=== PATIENT | male | born 1930 | race Caucasian/White ===

== ENCOUNTER 2017-02-03 09:38 | Outpatient (CLI) | payer MEDICARE ==
[2017-02-03 20:29] LABS: ALBUMIN/GLOBULIN RATIO 1.7 (1.0-2.2); BILIRUBIN,TOTAL 1.1 mg/dL (0.2-1.0); CALCIUM 10.1 mg/dL (8.5-10.3); CREATININE 1.2 mg/dL (0.6-1.2); POTASSIUM 4.3 mmol/L (3.5-5.0); TOTAL PROTEIN 7.1 g/dL (6.7-8.2)
== END 2017-02-03 09:39 | disposition home or self-care (01) ==
LOC: LAB.WCP 09:38
PROVIDERS: ATTEND Family Medicine
DX: I11.9 Hypertensive heart disease without heart failure (principal); I10 Essential (primary) hypertension; N28.9 Disorder of kidney and ureter, unspecified
CPT/HCPCS: 36415; 80053

== ENCOUNTER 2018-07-21 11:21 | Outpatient (CLI) | payer MEDICARE ==
[2018-07-21 11:49] LABS: BASOPHILS # (AUTO) 0.1 10^3/uL (0.0-0.1); BASOPHILS % (AUTO) 1.2 %; EOSINOPHILS # (AUTO) 0.4 10^3/uL (0.0-0.7); EOSINOPHILS % (AUTO) 5.3 %; HGB - HEMOGLOBIN 17.2 g/dL (14.0-18.0); LYMPHOCYTES # (AUTO) 1.1 10^3/uL (1.5-3.5); LYMPHOCYTES % (AUTO) 12.7 %; MEAN CORPUSCULAR HEMOGLOBIN 31.3 pg (27.0-31.0); MEAN CORPUSCULAR HGB CONC 34.4 g/dL (32.0-36.0); MEAN PLATELET VOLUME 7.5 fL (7.4-11.4); MONOCYTES # (AUTO) 0.7 10^3/uL (0.0-1.0); MONOCYTES % (AUTO) 8.6 %; NEUTROPHILS # (AUTO) 6.2 10^3/uL (1.5-6.6); NEUTROPHILS % (AUTO) 72.2 %; PLT - PLATELET COUNT 290 10^3/uL (130-450); RED BLOOD COUNT 5.51 10^6/uL (4.70-6.10); RED CELL DISTRIBUTION WIDTH 14.5 % (12.0-15.0); WHITE BLOOD COUNT 8.5 x10^3/uL (4.8-10.8)
[2018-07-21 12:08] LABS: ALBUMIN 4.6 g/dL (3.2-5.5); ALBUMIN/GLOBULIN RATIO 1.6 (1.0-2.2); ALKALINE PHOSPHATASE 94 IU/L (42-121); ALT ALANINE AMINOTRANSFERASE 19 IU/L (10-60); AST ASPARTATE AMINOTRANSFERASE 23 IU/L (10-42); BILIRUBIN,TOTAL 1.5 mg/dL (0.2-1.0); BUN - BLOOD UREA NITROGEN 20 mg/dL (6-20); CARBON DIOXIDE - CO2 27 mmol/L (21-32); CHLORIDE 104 mmol/L (101-111); CHOLESTEROL 159 mg/dL; CREATININE 1.2 mg/dL (0.6-1.2); GFR - MDRD 58 (>89); GLUCOSE 105 mg/dL (70-100); HDL CHOLESTEROL 40 mg/dL; LDL CHOLESTEROL,CALCULATED 99 mg/dL; LDL/HDL RATIO 2.5 (<3.6); SODIUM 139 mmol/L (135-145); TOTAL PROTEIN 7.5 g/dL (6.7-8.2); VLDL CHOLESTEROL 20 mg/dL
== END 2018-07-21 11:22 | disposition home or self-care (01) ==
LOC: LAB 11:21
PROVIDERS: ATTEND Family Medicine
DX: I10 Essential (primary) hypertension (principal); Z13.220 Encounter for screening for lipoid disorders; R53.83 Other fatigue
CPT/HCPCS: 36415; 80053; 80061; 83721; 84443; 85025

== ENCOUNTER 2019-02-23 08:00 | Outpatient (CLI) | payer MEDICARE ==
[2019-02-23 18:56] LABS: BASOPHILS # (AUTO) 0.1 10^3/uL (0.0-0.1); BASOPHILS % (AUTO) 0.6 %; EOSINOPHILS # (AUTO) 0.3 10^3/uL (0.0-0.7); HGB - HEMOGLOBIN 16.7 g/dL (14.0-18.0); LYMPHOCYTES % (AUTO) 12.2 %; MEAN CORPUSCULAR HEMOGLOBIN 31.8 pg (27.0-31.0); MEAN CORPUSCULAR HGB CONC 33.4 g/dL (32.0-36.0); MEAN CORPUSCULAR VOLUME 95.2 fL (80.0-94.0); MEAN PLATELET VOLUME 10.1 fL (7.4-11.4); MONOCYTES # (AUTO) 0.7 10^3/uL (0.0-1.0); MONOCYTES % (AUTO) 8.8 %; NEUTROPHILS # (AUTO) 6.1 10^3/uL (1.5-6.6); PLT - PLATELET COUNT 319 10^3/uL (130-450); RED BLOOD COUNT 5.25 10^6/uL (4.70-6.10); RED CELL DISTRIBUTION WIDTH 14.3 % (12.0-15.0); WHITE BLOOD COUNT 8.3 x10^3/uL (4.8-10.8)
[2019-02-23 19:13] LABS: ALBUMIN 4.4 g/dL (3.2-5.5); ALBUMIN/GLOBULIN RATIO 1.5 (1.0-2.2); ALKALINE PHOSPHATASE 74 IU/L (42-121); ALT ALANINE AMINOTRANSFERASE 18 IU/L (10-60); AST ASPARTATE AMINOTRANSFERASE 24 IU/L (10-42); BILIRUBIN,TOTAL 1.3 mg/dL (0.2-1.0); BUN - BLOOD UREA NITROGEN 23 mg/dL (6-20); CALCIUM 10.3 mg/dL (8.5-10.3); CARBON DIOXIDE - CO2 26 mmol/L (21-32); CHLORIDE 106 mmol/L (101-111); CHOL/HDL RATIO 4.2 (<5.0); CHOLESTEROL 158 mg/dL; CREATININE 1.2 mg/dL (0.6-1.2); GFR - MDRD 57 (>89); GLUCOSE 93 mg/dL (70-100); HDL CHOLESTEROL 38 mg/dL; LDL CHOLESTEROL,CALCULATED 99 mg/dL; LDL/HDL RATIO 2.6 (<3.6); SODIUM 142 mmol/L (135-145); TOTAL PROTEIN 7.4 g/dL (6.7-8.2); VLDL CHOLESTEROL 21 mg/dL
== END 2019-02-23 23:59 | disposition home or self-care (01) ==
LOC: LAB.WCP 08:00
PROVIDERS: ATTEND Family Medicine
DX: I10 Essential (primary) hypertension (principal); R53.83 Other fatigue; Z13.220 Encounter for screening for lipoid disorders
CPT/HCPCS: 36415; 80053; 80061; 83721; 84443; 85025

== ENCOUNTER 2019-09-08 14:31 | Outpatient (CLI) | payer MEDICARE ==
[2019-09-08 18:36] LABS: BASOPHILS # (AUTO) 0.1 10^3/uL (0.0-0.1); BASOPHILS % (AUTO) 0.6 %; EOSINOPHILS # (AUTO) 0.4 10^3/uL (0.0-0.7); EOSINOPHILS % (AUTO) 4.8 %; HGB - HEMOGLOBIN 16.1 g/dL (14.0-18.0); LYMPHOCYTES # (AUTO) 1.2 10^3/uL (1.5-3.5); LYMPHOCYTES % (AUTO) 15.4 %; MEAN CORPUSCULAR HEMOGLOBIN 30.7 pg (27.0-31.0); MEAN CORPUSCULAR VOLUME 93.1 fL (80.0-94.0); MONOCYTES # (AUTO) 0.8 10^3/uL (0.0-1.0); MONOCYTES % (AUTO) 10.9 %; NEUTROPHILS # (AUTO) 5.2 10^3/uL (1.5-6.6); NEUTROPHILS % (AUTO) 67.8 %; PLT - PLATELET COUNT 324 10^3/uL (130-450); RED BLOOD COUNT 5.24 10^6/uL (4.70-6.10); RED CELL DISTRIBUTION WIDTH 14.4 % (12.0-15.0); WHITE BLOOD COUNT 7.7 x10^3/uL (4.8-10.8)
[2019-09-08 18:58] LABS: BUN - BLOOD UREA NITROGEN 24 mg/dL (6-20); CARBON DIOXIDE - CO2 26 mmol/L (21-32); CHLORIDE 104 mmol/L (101-111); CREATININE 1.3 mg/dL (0.6-1.2); GFR - MDRD 52 (>89); GLUCOSE 98 mg/dL (70-100); SODIUM 139 mmol/L (135-145); URIC ACID 8.2 mg/dL (2.6-7.2)
[2019-09-08 19:02] LABS: CRP - C-REACTIVE PROTEIN < 1.0 mg/dL (0-1.0)
== END 2019-09-08 23:59 | disposition home or self-care (01) ==
LOC: LAB.WCP 14:31
PROVIDERS: ATTEND Family Medicine
DX: M10.00 Idiopathic gout, unspecified site (principal)
CPT/HCPCS: 36415; 80048; 84550; 85025; 85651; 86140

== ENCOUNTER 2019-10-10 05:36 | Outpatient (CLI) | payer MEDICARE | END 2019-10-10 05:37 | disposition home or self-care (01) | LOC: EMS 05:36 | PROVIDERS: ATTEND Surgery | DX: Z53.9 Procedure and treatment not carried out, unspecified reason (principal) ==

== ENCOUNTER 2020-05-06 16:30 | Outpatient (CLI) | payer MEDICARE ==
[2020-05-06 20:05] LABS: BILIRUBIN,URINE NEGATIVE (NEGATIVE); GLUCOSE, URINE (UA) NEGATIVE (NEGATIVE); KETONES,URINE (UA) NEGATIVE (NEGATIVE); LEUKOCYTE ESTERASE, URINE NEGATIVE (NEGATIVE); NITRITE,URINE NEGATIVE (NEGATIVE); OCCULT BLOOD,URINE NEGATIVE (NEGATIVE); PROTEIN,URINE NEGATIVE (NEGATIVE); UROBILINOGEN,URINE 0.2 (NORMAL) E.U./dL (NORMAL)
[2020-05-06 20:14] LABS: CLARITY,URINE CLEAR (CLEAR); RBC,URINE None Seen /HPF (0-5)
[2020-05-06 20:15] LABS: BACTERIA,URINE None Seen /HPF (None Seen); SQUAMOUS EPITHELIAL CELL,UR RARE Squamous (<= Few)
== END 2020-05-06 23:59 | disposition home or self-care (01) ==
LOC: LAB.R 16:30
PROVIDERS: ATTEND Physician Assistant Medical
DX: R35.0 Frequency of micturition (principal); R41.0 Disorientation, unspecified
CPT/HCPCS: 81001; 87086

== ENCOUNTER 2020-06-17 15:25 | Outpatient (CLI) | payer MEDICARE ==
--- NOTE | 2020-06-17 18:20 | Ultrasound Report ---
PROCEDURE: Duplex Lwr Ext Arterial LT INDICATIONS: PERIPHERAL ARTERY DISEASE TECHNIQUE: Color and pulse Doppler interrogation was performed of the right lower extremity arterial system, wit h image documentation. COMPARISON: None FINDINGS: Common femoral artery: 101 cm/sec, with triphasic flow. Deep femoral artery: 71 cm/sec, with triphasic flow. Proximal superficial femoral artery: 103 cm/sec, with triphasic flow. Mid superficial femoral artery: 116 cm/sec, with triphasic flow. Distal superficial femoral artery: 55 cm/sec, with biphasic flow. Popliteal artery: 68 cm/sec, with triphasic flow. Posterior tibial artery: 109 cm/sec, with triphasic flow. Anterior tibial artery/dorsalis pedis: 69/40 cm/sec, with triphasic/triphasic flow. Nova-scale imaging description: Mild calcific and soft plaque, but no significant stenosis. IMPRESSION: No sign of arterial insufficiency to the right lower extremity arterial vasculature. Reviewed by: Mikael Ceballos MD on 06/17/2020 6:19 PM PST Approved by: Mikael Ceballos MD on 06/17/2020 6:19 PM PST Station ID: [id number]
== END 2020-06-17 15:26 | disposition home or self-care (01) ==
LOC: DI 15:25
PROVIDERS: ATTEND Family Medicine
DX: I73.9 Peripheral vascular disease, unspecified (principal)

== ENCOUNTER 2020-12-18 16:06 | Outpatient (CLI) | payer MEDICARE ==
[2020-12-18 17:46] LABS: BASOPHILS # (AUTO) 0.1 10^3/uL (0.0-0.1); BASOPHILS % (AUTO) 0.7 %; EOSINOPHILS # (AUTO) 0.4 10^3/uL (0.0-0.7); EOSINOPHILS % (AUTO) 4.2 %; HCT - HEMATOCRIT 46.9 % (42.0-52.0); HGB - HEMOGLOBIN 15.5 g/dL (14.0-18.0); LYMPHOCYTES # (AUTO) 1.2 10^3/uL (1.5-3.5); LYMPHOCYTES % (AUTO) 12.3 %; MEAN CORPUSCULAR HEMOGLOBIN 32.1 pg (27.0-31.0); MEAN CORPUSCULAR VOLUME 97.1 fL (80.0-94.0); MEAN PLATELET VOLUME 10.5 fL (7.4-11.4); MONOCYTES # (AUTO) 0.9 10^3/uL (0.0-1.0); MONOCYTES % (AUTO) 9.4 %; NEUTROPHILS # (AUTO) 7.1 10^3/uL (1.5-6.6); PLT - PLATELET COUNT 314 10^3/uL (130-450); RED BLOOD COUNT 4.83 10^6/uL (4.70-6.10); RED CELL DISTRIBUTION WIDTH 14.3 % (12.0-15.0); WHITE BLOOD COUNT 9.7 x10^3/uL (4.8-10.8)
[2020-12-18 18:03] LABS: ALBUMIN 4.1 g/dL (3.2-5.5); ALBUMIN/GLOBULIN RATIO 1.4 (1.0-2.2); ALKALINE PHOSPHATASE 104 IU/L (42-121); ALT ALANINE AMINOTRANSFERASE 19 IU/L (10-60); AST ASPARTATE AMINOTRANSFERASE 25 IU/L (10-42); BILIRUBIN,TOTAL 0.8 mg/dL (0.2-1.0); BUN - BLOOD UREA NITROGEN 30 mg/dL (6-20); CALCIUM 9.6 mg/dL (8.5-10.3); CARBON DIOXIDE - CO2 29 mmol/L (21-32); CHLORIDE 106 mmol/L (101-111); CHOL/HDL RATIO 3.8 (<5.0); CHOLESTEROL 142 mg/dL; CREATININE 1.2 mg/dL (0.6-1.2); GFR - MDRD 57 (>89); GLUCOSE 82 mg/dL (70-100); HDL CHOLESTEROL 37 mg/dL; LDL CHOLESTEROL,CALCULATED 77 mg/dL; LDL/HDL RATIO 2.1 (<3.6); POTASSIUM 4.1 mmol/L (3.5-5.0); SODIUM 142 mmol/L (135-145); TOTAL PROTEIN 7.1 g/dL (6.7-8.2); TRIGLYCERIDES 139 mg/dL; VLDL CHOLESTEROL 28 mg/dL
== END 2020-12-18 16:07 | disposition home or self-care (01) ==
LOC: LAB.N 16:06
PROVIDERS: ATTEND Family Medicine
DX: I10 Essential (primary) hypertension (principal)
CPT/HCPCS: 36415; 80053; 80061; 83721; 85025

== ENCOUNTER 2021-02-03 05:22 | Outpatient (CLI) | payer MEDICARE | END 2021-02-03 05:23 | disposition critical access hospital (66) | LOC: EMS 05:22 | DX: S01.01XA Laceration without foreign body of scalp, initial encounter (principal); W01.0XXA Fall on same level from slipping, tripping and stumbling without subsequent striking against object, initial encounter; Y93.89 Activity, other specified; Y92.190 Kitchen in other specified residential institution as the place of occurrence of the external cause | CPT/HCPCS: A0425; A0429 ==

== ENCOUNTER 2021-02-03 05:37 | Emergency (ER) | payer MEDICARE ==
--- NOTE | 2021-02-03 06:09 | ED Physician Documentation ---
PD HPI HEAD INJURY - Stated complaint Stated Complaint: GLF, HEAD INJURY - Chief complaint Chief Complaint: Laceration - History obtained from History obtained from: Patient, EMS - History of Present Illness Mechanism of head injury: Fell Where head injury occurred: Home Timing - onset: Today Location of injury: Back Quality of pain: Pain Associated symptoms: Other. No: LOC Symptoms improve with: Rest Symptoms worsen with: Palpation Contributing factors: No: Anticoagulated Similar symptoms before: Has not had sx before Recently seen: Not recently seen - Additional information Additional information: 89-year-old male resident of [place] with a history of advanced dementia was found at the nurses station to have a laceration to the back of his head. He was unable to describe how he fell and the fall was unwitnessed. He is not able as a historian to provide any detail. Review of Systems Unable to obtain: Dementia PD PAST MEDICAL HISTORY - Past Medical History Cardiovascular: Congestive heart failure, Hypertension Neuro: Dementia : Benign prostate hypertrophy Musculoskeletal: Osteoarthritis, Gout, Other (Dupuytren's contracture right hand) Derm: Other - Past Surgical History HEENT: Other - Present Medications Home Medications: Ambulatory Orders Medication Instructions Recorded Confirmed Amlodipine Besylate 10 mg PO DAILY 08/16/19 02/03/21 Furosemide [Lasix] 60 mg PO DAILY 08/16/19 02/03/21 Lisinopril [Zestril] 40 mg PO DAILY 08/16/19 02/03/21 Potassium Chloride 20 meq PO DAILY 08/16/19 02/03/21 allopurinoL [Zyloprim] 1 tab PO DAILY 07/09/20 02/03/21 Acetaminophen [Acetaminophen Extra 1 tab PO TID PRN 02/03/21 02/03/21 Strength] [place]-3/Dha/Epa/Fish Oil [Fish Oil 1 cap PO DAILY 02/03/21 02/03/21 1,000 mg Softgel] - Allergies Allergies/Adverse Reactions: Allergies Allergy/AdvReac Type Severity Reaction Status Date / Time Sulfa (Sulfonamide Allergy Unknown Verified 02/03/21 05:56 Antibiotics) - Social History Smoking Status: Never smoker PD ED PE NORMAL - Vitals Vital signs reviewed: Yes (Hypertensive mild) - General General: No acute distress, Well developed/nourished - HEENT HEENT: PERRL, EOMI, Other (There is a 4 cm L-shaped laceration to the occiput. There is no crepitance to the underlying tissues.) - Neck Neck: Supple, no meningeal sign, No bony TTP - Cardiac Cardiac: RRR, No murmur - Respiratory Respiratory: No respiratory distress, Clear bilaterally - Abdomen Abdomen: Normal bowel sounds, Soft, Non tender, Non distended, No organomegaly - Back Back: No CVA TTP, No spinal TTP - Derm Derm: Normal color, Warm and dry, No rash - Extremities Extremities: Other (Both feet are swollen this appears chronic.) - Neuro Neuro: top lifter 2-12 intact, No motor deficit, No sensory deficit, Normal speech Eye Opening: Spontaneous Motor: Obeys Commands Verbal: Confused GCS Score: 14 - Psych Psych: Normal mood, Normal affect Results - Vitals Vitals: Vital Signs - 24 hr 02/03/21 05:40 Temperature 36.6 C Heart Rate 73 Respiratory 18 Rate Blood Pressure 145/80 H O2 Saturation 100 Oxygen O2 Source Room air Procedures - Laceration (location) occiput Length in cm: 4 Wound type: Curved, Flap, Into muscle Neurovascular status: Sensory intact, Motor intact, Vascular intact Anesthesia: Lidocaine 1%, With bicarb Wound preparation: Hibiclens, Irrigated copiously NS, Wound explored, To the base, Multiple flaps aligned Skin layer closure: [place] Other: Patient tolerated well, No complications, Neurovascular intact, Dressing applied, Tetanus booster given PD MEDICAL DECISION MAKING - ED course Complexity details: reviewed old records, re-evaluated patient, considered differential, d/w patient, d/w family ED course: 89-year-old male with advanced dementia is unable to provide any significant history associated with this except that he did have a fall and has a laceration to his scalp. He denies pain in his neck on examination he has a 4 cm scalp laceration without involvement of deeper structures. This is cleansed anesthetized cleansed further and closed with luis. The patient tolerates this well. The patient is unable to give us any specific history of his injury and his daughter eventually shows up to the emergency department and indicates that the patient appears off from his usual baseline. She indicates that he is more agitated than usual and that he has been having a problem with his balance for the past 2 weeks and had a fall last . The patient is "un" discharged and further evaluation is ordered. At shift change his care is turned over to Dr. Valdez for further work-up and disposition. Departure - Departure Clinical Impression: Occipital scalp laceration Qualifiers: Encounter type: initial encounter Qualified Code(s): S01.01XA - Laceration without foreign body of scalp, initial encounter Condition: Stable Instructions: ED Laceration Scalp Stitch Or Stap Follow-Up: Basilia Tam DO [Provider Admit Priv/Credential] - Comments: Luis should be removed in 10 days
[2021-02-03] MEDS: BUFFERED LIDOCAINE 10 ML SYRINGE SUBQ STA (06:11)
[2021-02-03] MEDS: TETANUS/DIPHTHERIA/PERTUSSIS 0.5 ML SYRINGE IM ONE (06:44)
[2021-02-03] MEDS: BACITRACIN ZINC OINT 1 PACKET TOP STA (06:56)
--- NOTE | 2021-02-03 07:50 | CT Report ---
PROCEDURE: CERVICAL SPINE WO INDICATIONS: Trauma, fall, head injury TECHNIQUE: Noncontrast 3 mm thick sections acquired from the skull base to the T4 level. Sagittal and coronal r eformats were then constructed. For radiation dose reduction, the following was used: automated exp osure control, adjustment of mA and/or kV according to patient size. COMPARISON: None. FINDINGS: Image quality: Excellent. Bones: No fractures or dislocations. Visualized superior ribs are intact. Soft tissues: Prevertebral soft tissues are normal in thickness. No paravertebral hematomas. No ap ical pneumothoraces. IMPRESSION: No CT evidence of acute traumatic cervical spine injury. Reviewed by: Jerald Taylor MD on 02/03/2021 7:49 AM PDT Approved by: Jerald Taylor MD on 02/03/2021 7:49 AM PDT Station ID: [id number]
[2021-02-03 07:55] LABS: GLUCOSE, URINE (UA) NEGATIVE (NEGATIVE); KETONES,URINE (UA) 15 mg/dL (NEGATIVE); LEUKOCYTE ESTERASE, URINE NEGATIVE (NEGATIVE); NITRITE,URINE NEGATIVE (NEGATIVE); OCCULT BLOOD,URINE NEGATIVE (NEGATIVE); PROTEIN,URINE TRACE mg/dL (NEGATIVE); UROBILINOGEN,URINE 4 E.U./dL (NORMAL)
--- NOTE | 2021-02-03 07:58 | CT Report ---
PROCEDURE: HEAD WO INDICATIONS: Trauma, fall, head injury. TECHNIQUE: Noncontrast 4.5 mm thick angled axial sections acquired from the foramen magnum to the vertex. For r adiation dose reduction, the following was used: automated exposure control, adjustment of mA and/or kV according to patient size. COMPARISON: None. FINDINGS: Image quality: Excellent. CSF spaces: Basal cisterns are patent. No extra-axial fluid collections. Ventricles are normal in size and shape. Brain: There are multiple small foci of subarachnoid hemorrhage for example on series 4 image 24 in t he left posterior parietal lobe, also on series 4 image 23 in the left posterior parietal lobe. Hyper density adjacent to the left falx on series 4 image 19 is also likely subarachnoid although there cou ld be a tiny subdural component as well. Tiny foci of subarachnoid hemorrhage on series 4 image 18 an d series 4 image 19 also noted. Global cerebral volume loss and advanced chronic microvascular ischem ic changes. Skull and face: Calvarium and visualized facial bones are intact, without suspicious lesions. Left posterior scalp l aceration with skin luis. Sinuses: Visualized sinuses and mastoids are clear. IMPRESSION: Several small foci of subarachnoid hemorrhage in the left parietal lobe, consistent with traumatic subarachnoid hemorrhage. Findings were discussed with Dr. Valdez at 0753 on 02/03/2021. Reviewed by: Jerald Taylor MD on 02/03/2021 7:56 AM PDT Approved by: Jerald Taylor MD on 02/03/2021 7:56 AM PDT Station ID: [id number]
[2021-02-03 08:06] LABS: BASOPHILS # (AUTO) 0.1 10^3/uL (0.0-0.1); BASOPHILS % (AUTO) 0.5 %; EOSINOPHILS # (AUTO) 0.1 10^3/uL (0.0-0.7); EOSINOPHILS % (AUTO) 1.1 %; HCT - HEMATOCRIT 48.5 % (42.0-52.0); HGB - HEMOGLOBIN 17.1 g/dL (14.0-18.0); LYMPHOCYTES # (AUTO) 0.7 10^3/uL (1.5-3.5); LYMPHOCYTES % (AUTO) 7.6 %; MEAN CORPUSCULAR HEMOGLOBIN 32.5 pg (27.0-31.0); MEAN CORPUSCULAR HGB CONC 35.3 g/dL (32.0-36.0); MEAN CORPUSCULAR VOLUME 92.2 fL (80.0-94.0); MEAN PLATELET VOLUME 9.4 fL (7.4-11.4); MONOCYTES # (AUTO) 0.8 10^3/uL (0.0-1.0); MONOCYTES % (AUTO) 8.8 %; NEUTROPHILS # (AUTO) 7.8 10^3/uL (1.5-6.6); NEUTROPHILS % (AUTO) 81.7 %; PLT - PLATELET COUNT 290 10^3/uL (130-450); RED BLOOD COUNT 5.26 10^6/uL (4.70-6.10); RED CELL DISTRIBUTION WIDTH 14.4 % (12.0-15.0); WHITE BLOOD COUNT 9.5 x10^3/uL (4.8-10.8)
[2021-02-03 08:14] LABS: BILIRUBIN,URINE NEGATIVE (NEGATIVE); CLARITY,URINE CLEAR (CLEAR); ICTOTEST,URINE NEGATIVE
[2021-02-03 08:20] LABS: ALBUMIN 4.3 g/dL (3.2-5.5); ALBUMIN/GLOBULIN RATIO 1.5 (1.0-2.2); BILIRUBIN,TOTAL 3.4 mg/dL (0.2-1.0); CALCIUM 10.3 mg/dL (8.5-10.3); POTASSIUM 3.4 mmol/L (3.5-5.0); TOTAL PROTEIN 7.2 g/dL (6.7-8.2)
[2021-02-03] MEDS: diazePAM INJ 5 MG/ML SYRINGE IM STA (10:13)
[2021-02-03 10:32] LABS: B. PARAPERTUSSIS- RESP PCR PAN NOT DETECTED; B. PERTUSSIS- RESP PCR PANEL NOT DETECTED; C. PNEUMONIAE- RESP PCR PANEL NOT DETECTED; CORONAVIRUS 229E-RESP PCR NOT DETECTED; CORONAVIRUS HKU1-RESP PCR NOT DETECTED; CORONAVIRUS NL63-RESP PCR NOT DETECTED; CORONAVIRUS OC43-RESP PCR NOT DETECTED; HUMAN METAPNEUMOVIRUS NOT DETECTED; INFLUENZA A- RESP PCR PANEL NOT DETECTED; INFLUENZA B - RESP PCR PANEL NOT DETECTED; M. PNEUMONIAE- RESP PCR PANEL NOT DETECTED; PARAINFLUENZA VIRUS 1 NOT DETECTED; PARAINFLUENZA VIRUS 2 NOT DETECTED; PARAINFLUENZA VIRUS 3 NOT DETECTED; PARAINFLUENZA VIRUS 4 NOT DETECTED; RHINOVIRUS/ENTEROVIRUS NOT DETECTED; RSV- RESP PCR PANEL NOT DETECTED; SARS-CoV-2 -RESP PCR PANEL NOT DETECTED
--- NOTE | 2021-02-03 16:47 | CT Report ---
PROCEDURE: HEAD WO INDICATIONS: Subarachnoid hemorrhage TECHNIQUE: Noncontrast 4.5 mm thick angled axial sections acquired from the foramen magnum to the vertex. For r adiation dose reduction, the following was used: automated exposure control, adjustment of mA and/or kV according to patient size. COMPARISON: Head CT 02/03/2021 FINDINGS: Image quality: Excellent. CSF spaces: Basal cisterns are patent. No extra-axial fluid collections. Ventricles are normal in size and shape. Brain: Previously seen multifocal subarachnoid hemorrhage is redemonstrated. The foci of subarachnoid hemorrhage immediately adjacent to the interhemispheric fissure have slightly increased. There other foci of hemorrhage are stable. No additional intracranial hemorrhage identified. No findings of mass effect or midline shift. Skull and face: Calvarium and visualized facial bones are intact, without suspicious lesions. Sinuses: Visualized sinuses and mastoids are clear. IMPRESSION: Slight increase in size of one of the foci of subarachnoid hemorrhage seen previously. R emaining foci of subarachnoid hemorrhage are stable. Reviewed by: Jerald Taylor MD on 02/03/2021 4:46 PM PDT Approved by: Jerald Taylor MD on 02/03/2021 4:46 PM PDT Station ID: [id number]
[2021-02-03 17:17] VITALS: BP 143/77
== END 2021-02-03 17:59 | disposition home or self-care (01) ==
LOC: EDUNIT# → ED 05:37
DX: S06.6X0A Traumatic subarachnoid hemorrhage without loss of consciousness, initial encounter (principal); S01.01XA Laceration without foreign body of scalp, initial encounter; W18.30XA Fall on same level, unspecified, initial encounter; Z91.81 History of falling; Y92.099 Unspecified place in other non-institutional residence as the place of occurrence of the external cause; Z23 Encounter for immunization; F03.90 Unspecified dementia, unspecified severity, without behavioral disturbance, psychotic disturbance, mood disturbance, and anxiety; I11.0 Hypertensive heart disease with heart failure; I50.9 Heart failure, unspecified; Z20.822 Contact with and (suspected) exposure to COVID-19; Z66 Do not resuscitate
CPT/HCPCS: 12032; 36415; 70450; 72125; 80053; 81003; 83690; 85025; 87631; 90471; 90715; 96372; 99281; 99284; A9270; 0202U; 81001; 87086

== ENCOUNTER 2021-02-03 18:08 | Outpatient (CLI) | payer MEDICARE | END 2021-02-03 18:09 | disposition home or self-care (01) | LOC: EMS 18:08 | PROVIDERS: ATTEND Emergency Medicine | DX: S06.6X9A Traumatic subarachnoid hemorrhage with loss of consciousness of unspecified duration, initial encounter (principal); W18.30XA Fall on same level, unspecified, initial encounter; Y92.10 Unspecified residential institution as the place of occurrence of the external cause; F03.90 Unspecified dementia, unspecified severity, without behavioral disturbance, psychotic disturbance, mood disturbance, and anxiety | CPT/HCPCS: A0425; A0428 ==

== ENCOUNTER 2021-02-04 02:37 | Outpatient (CLI) | payer MEDICARE | END 2021-02-04 02:38 | disposition critical access hospital (66) | LOC: EMS 02:37 | DX: R41.0 Disorientation, unspecified (principal); R45.1 Restlessness and agitation | CPT/HCPCS: A0425; A0427 ==

== ENCOUNTER 2021-02-04 02:53 | Emergency (ER) | payer MEDICARE ==
--- NOTE | 2021-02-04 04:25 | ED Physician Documentation ---
History of Present Illness - Stated complaint Stated Complaint: GLF/ CONFUSED - Chief complaint Chief Complaint: General - History obtained from History obtained from: Family (daughter), EMS, Caregiver, Other (patient unable to contribute to HPI/ROS due to confusion) - Additonal information Additional information: ARMIDA from [facility] assisted living facility. He was brought in by ambulance yesterday morning (02/03/21) after fall, had scalp laceration that was repaired (stapled) by EDMD. Preparations were being made for d/c back to [facility] when daughter arrived to ED and told EDMD that patient's mentation was worse than baseline. Because of this, patient then had CT head and neck ordered and case signed out to the oncoming () EDMD. CTH showed several small foci of SAH in left parietal lobe. Patient was held in ED repeat CTH approximately 9 hours later showed slight increase in size of one of the foci of SAH with remaining foci stable. He is now brought back in to ED by ambulance after being found on the floor next to his bed. There was not a witnessed fall. EMS says that [facility] staff note patient remains more confused than his baseline Review of Systems Unable to obtain: Confused, Dementia PD PAST MEDICAL HISTORY - Past Medical History Past Medical History: Yes Cardiovascular: Congestive heart failure, Hypertension Neuro: Dementia : Benign prostate hypertrophy Musculoskeletal: Osteoarthritis, Gout, Other Derm: Other - Past Surgical History Past Surgical History: Yes HEENT: Other - Present Medications Home Medications: Ambulatory Orders Medication Instructions Recorded Confirmed Amlodipine Besylate 10 mg PO DAILY 08/16/19 02/03/21 Furosemide [Lasix] 60 mg PO DAILY 08/16/19 02/03/21 Lisinopril [Zestril] 40 mg PO DAILY 08/16/19 02/03/21 Potassium Chloride 20 meq PO DAILY 08/16/19 02/03/21 allopurinoL [Zyloprim] 1 tab PO DAILY 07/09/20 02/03/21 Acetaminophen [Acetaminophen Extra 1 tab PO TID PRN 02/03/21 02/03/21 Strength] [place]-3/Dha/Epa/Fish Oil [Fish Oil 1 cap PO DAILY 02/03/21 02/03/21 1,000 mg Softgel] - Allergies Allergies/Adverse Reactions: Allergies Allergy/AdvReac Type Severity Reaction Status Date / Time Sulfa (Sulfonamide Allergy Unknown Verified 02/03/21 05:56 Antibiotics) - Social History Does the pt smoke?: No Smoking Status: Never smoker - Immunizations Immunizations are current?: No Immunizations: TDAP >10years/unknown - POLST Patient has POLST: No PD ED PE NORMAL - Vitals Vital signs reviewed: Yes - General General: No acute distress, Well developed/nourished, Other (awake, alert but confused. does not provide appropriate answers to questions. follows simple commands, NAD) - HEENT HEENT: PERRL, EOMI, Moist mucous membranes - Neck Neck: No bony TTP - Cardiac Cardiac: RRR, No murmur - Respiratory Respiratory: No respiratory distress, Clear bilaterally - Abdomen Abdomen: Soft, Non tender - Back Back: No spinal TTP - Derm Derm: Normal color, Warm and dry - Extremities Extremities: No tenderness to palpate, Normal ROM s pain PD ED PE EXPANDED - HEENT HEENT: Other (posterior occipital scalp laceration closed with luis in place) Results - Vitals Vitals: Vital Signs - 24 hr 02/04/21 02/04/21 02/04/21 03:00 07:42 11:43 Temperature 36.6 C 34.4 C L Heart Rate 75 66 99 Respiratory 16 16 16 Rate Blood Pressure 133/80 H 130/70 157/79 H O2 Saturation 95 96 96 02/04/21 13:04 Temperature 36.7 C Heart Rate 68 Respiratory 20 Rate Blood Pressure 118/66 O2 Saturation 95 Oxygen O2 Source Room air - Rads (name of study) [facility] Radiology: Prelim report reviewed, See rad report PD MEDICAL DECISION MAKING - ED course Complexity details: reviewed old records, reviewed results, re-evaluated patient, considered differential, d/w patient, d/w family ED course: unremarkable blood tests and UA on yesterday's visit and thus these were not repeated tonight. [facility] tonight demonstrates no significant change from previous. Case signed out to oncoming ED physician pending disposition Departure - Departure Disposition: 01 Home, Self Care Clinical Impression: Occipital scalp laceration, Subarachnoid hem w/o coma, Confusion Condition: Stable Instructions: ED Laceration Scalp Stitch Or Stap Follow-Up: Basilia Tam DO [Primary Care Provider] - Comments: It is okay to wash and shower. Clean off the wound twice a day with soap and water, or peroxide and water. Apply some antibiotic ointment to it to keep it moist. Also to watch for signs of infection such as purulence, redness or increasing pain. Return to your primary care or the ER at the specified time for suture removal. Staple removal in 8 to 10 days. Tylenol every 4-6 hours if needed for headache or pains. Otherwise continue usual medications and maintain good hydration and intake. Social work informs me that you will be trying to get a higher level of assisted care in the short-term at [place] and ultimately looking for a higher level of care placement. The CT scan did not show any worsening of the bleeding from yesterday. This should slowly resorb like a bruise over several days to week. At this point there would not be any anticipation of worsening bleeding. Return to the ER however if significant change in mentation. Discharge Date/Time: 02/04/21 13:07
[2021-02-04] MEDS: METOPROLOL TARTRATE 50 MG TABLET PO STA (05:40)
--- NOTE | 2021-02-04 07:02 | CT Report ---
PROCEDURE: HEAD WO INDICATIONS: Trauma, fall, altered mental status TECHNIQUE: Noncontrast 4.5 mm thick angled axial sections acquired from the foramen magnum to the vertex. For r adiation dose reduction, the following was used: automated exposure control, adjustment of mA and/or kV according to patient size. COMPARISON: 02/03/[address] examinations FINDINGS: Image quality: Excellent. CSF spaces: Basilar cisterns and ventricular system are patent with no significant change in caliber from prior study. Brain: Unchanged left parietal cerebral convexity subarachnoid hemorrhage. Remaining findings are unc hanged Skull and face: Calvarium and visualized facial bones are intact, without suspicious lesions. Scalp luis in the posterior parieto-occipital region are similar. Sinuses: Visualized sinuses and mastoids are clear. IMPRESSION: Multifocal left parietal convexity subarachnoid hemorrhage is unchanged from most recent prior study. Reviewed by: Jerald Taylor MD on 02/04/2021 7:01 AM PDT Approved by: Jerald Taylor MD on 02/04/2021 7:01 AM PDT Station ID: [id number]
[2021-02-04] MEDS ORDERED: amLODIPine 5 MG TABLET PO STA (08:45)
[2021-02-04] MEDS: FUROSEMIDE 20 MG TABLET PO STA (09:10)
[2021-02-04] MEDS: amLODIPine 5 MG TABLET PO STA (09:11)
--- NOTE | 2021-02-04 12:38 | ED Physician Documentation ---
ED Addendum - Addendum Addendum: 02/04/21 12:35The patient has had reportedly some general decline over the last few weeks with some falling and weakness. Seen in the ER yesterday after a fall on had a small subarachnoid bleed that was stable over 10 hours with a repeat CT scan. He returned to [place] was noted to be still having weakness and confusion and return to the ER by ambulance this morning. His daughter is here and states he is a little off his baseline on mentation and does seem a little anxious. Care was handed off to me on change of shift. The patient ate breakfast and was interacting with his daughter. She states he is doing a little bit better now. Social work talked with them as well as [place]. Ultimate goal is higher level of care in the near term but the short-term today is the patient's daughter is comfortable having him back to [place] and will get back some caregivers he used to have to have more continued presence. Social work talked with [place] and they are able to provide a higher level of service as well in the short-term. The daughter is looking into longterm facilities. At this point there seems to be a good level of comfort with him returning to [place] with a higher level of assistance and a dose. The CT scan again today showed no interval change from yesterday.
[2021-02-04 13:04] VITALS: BP 118/66
== END 2021-02-04 13:07 | disposition home or self-care (01) ==
LOC: EDUNIT# → ED 02:53 → SUPCPDRO 02:53 → ED 13:07
DX: S06.6X0A Traumatic subarachnoid hemorrhage without loss of consciousness, initial encounter (principal); S01.01XA Laceration without foreign body of scalp, initial encounter; W18.30XA Fall on same level, unspecified, initial encounter; Y92.099 Unspecified place in other non-institutional residence as the place of occurrence of the external cause; F03.90 Unspecified dementia, unspecified severity, without behavioral disturbance, psychotic disturbance, mood disturbance, and anxiety; I11.0 Hypertensive heart disease with heart failure; I50.9 Heart failure, unspecified; Z66 Do not resuscitate
CPT/HCPCS: 70450; 99283; 99284; A9270

== ENCOUNTER 2021-02-05 16:06 | Emergency (ER) | payer MEDICARE ==
[2021-02-05 16:16] VITALS: BP 126/82
[2021-02-05 16:26] LABS: BASOPHILS # (AUTO) 0.1 10^3/uL (0.0-0.1); BASOPHILS % (AUTO) 0.6 %; EOSINOPHILS # (AUTO) 0.4 10^3/uL (0.0-0.7); EOSINOPHILS % (AUTO) 4.2 %; HCT - HEMATOCRIT 49.9 % (42.0-52.0); HGB - HEMOGLOBIN 17.5 g/dL (14.0-18.0); LYMPHOCYTES # (AUTO) 1.3 10^3/uL (1.5-3.5); LYMPHOCYTES % (AUTO) 14.1 %; MEAN CORPUSCULAR HEMOGLOBIN 32.8 pg (27.0-31.0); MEAN CORPUSCULAR HGB CONC 35.1 g/dL (32.0-36.0); MEAN CORPUSCULAR VOLUME 93.6 fL (80.0-94.0); MEAN PLATELET VOLUME 9.3 fL (7.4-11.4); MONOCYTES # (AUTO) 1.1 10^3/uL (0.0-1.0); MONOCYTES % (AUTO) 11.7 %; NEUTROPHILS # (AUTO) 6.2 10^3/uL (1.5-6.6); PLT - PLATELET COUNT 292 10^3/uL (130-450); RED BLOOD COUNT 5.33 10^6/uL (4.70-6.10); RED CELL DISTRIBUTION WIDTH 14.6 % (12.0-15.0)
--- NOTE | 2021-02-05 16:35 | ED Physician Documentation ---
History of Present Illness - Stated complaint Stated Complaint: HEAD INJ - Chief complaint Chief Complaint: Neuro - Additonal information Additional information: And has a [id number] male was advised by his primary care provider to return to the ER for evaluation of a headache. 3 of dementia and unfortunately had a ground-level fall 02/03/2021. He is not anticoagulated. He presented to the ER and underwent CT imaging of the head that did show a small Subarachnoid hemorrhage. The CT of the head was ultimately repeated and it did show that perhaps there was a mild increase in the size of the subarachnoid. Previous providers that saw this gentleman in the ER did speak with both neurosurgery at [facility] as well as [place]. Given the small size of this bleed they would not recommend transfer or neurosurgical intervention. Ultimately the patient finally had a third CT of the head that did not show a change in the size of the bleed. He does reside at [facility]. Social work saw the patient and they did arrange for increased care hours. Patient's daughter has been staying with the patient since he was discharged from the emergency department. Unfortunately there were no beds available to transfer the patient to and there were no assisted beds available so she has been staying with him. This morning he reported that he had a bad headache and she did give him Aleve which improve the headache. Patient was seen at Dr. Gonsalez's office today for neck pain and Dr. Gonsalez felt that he could not address the neck pain until a repeat evaluation in the ER ruled out worsening subarachnoid hemorrhage. His daughter reports that the biggest change for Apolinar has been that he now is unsteady in his gait. She found that he needs a wheelchair for long distances but he was more stable last night with a walker. Pt has a POLST and is a DNR Review of Systems Unable to obtain: Dementia Skin: reports: Laceration (s) (Posterior scalp.) Neurologic: reports: Headache PD PAST MEDICAL HISTORY - Past Medical History Cardiovascular: Congestive heart failure, Hypertension Neuro: Dementia : Benign prostate hypertrophy Musculoskeletal: Osteoarthritis, Gout, Other Derm: Other - Past Surgical History Past Surgical History: Yes HEENT: Other - Present Medications Home Medications: Ambulatory Orders Medication Instructions Recorded Confirmed Amlodipine Besylate 10 mg PO DAILY 08/16/19 02/05/21 Furosemide [Lasix] 60 mg PO DAILY 08/16/19 02/05/21 Lisinopril [Zestril] 40 mg PO DAILY 08/16/19 02/05/21 Potassium Chloride 20 meq PO DAILY 08/16/19 02/05/21 allopurinoL [Zyloprim] 1 tab PO DAILY 07/09/20 02/05/21 Acetaminophen [Acetaminophen Extra 1 tab PO TID PRN 02/03/21 02/05/21 Strength] Moore-3/Dha/Epa/Fish Oil [Fish Oil 1 cap PO DAILY 02/03/21 02/05/21 1,000 mg Softgel] Acetaminophen [Tylenol] 650 mg PO Q6H PRN #30 tab 02/05/21 - Allergies Allergies/Adverse Reactions: Allergies Allergy/AdvReac Type Severity Reaction Status Date / Time Sulfa (Sulfonamide Allergy Unknown Verified 02/05/21 16:11 Antibiotics) - Social History Does the pt smoke?: No Smoking Status: Never smoker - Immunizations Immunizations are current?: No Immunizations: TDAP >10years/unknown - POLST Patient has POLST: No PD ED PE EXPANDED - General General: Other (well appearing) - Neck Neck: Soft tissue TTP (neck skewed to the left. ) - Cardiac Cardiac: Regular Rate, Radial strong equal, Cap refill < 2 sec - Respiratory Respiratory: Clear to ausultation doug. No: Distress, Labored - Abdomen Abdomen: Normal Bowel sounds. No: Tender to palpation - Derm Derm: Normal color, Warm and dry, Laceration(s) (posterior scalp; well approximated) - Extremities Extremities: Normal. No: Deformity, Tenderness - Neuro Neuro: Confused, CNII-XII intact Results - Vitals Vitals: Vital Signs - 24 hr 02/05/21 16:12 Temperature 36.4 C L Heart Rate 79 Respiratory 18 Rate Blood Pressure 126/82 H O2 Saturation 98 Oxygen O2 Source Room air - Labs Labs: Laboratory Tests 02/05/21 02/05/21 16:21 16:21 WBC 9.0 RBC 5.33 Hgb 17.5 Hct 49.9 MCV 93.6 MCH 32.8 H MCHC 35.1 RDW 14.6 Plt Count 292 MPV 9.3 Neut # (Auto) 6.2 Lymph # (Auto) 1.3 L Merrick # (Auto) 1.1 H Eos # (Auto) 0.4 Baso # (Auto) 0.1 Absolute Nucleated RBC 0.00 Nucleated RBC % 0.0 Sodium 140 Potassium 3.8 Chloride 102 Carbon Dioxide 27 Anion Gap 11.0 BUN 24 H Creatinine 1.1 Estimated GFR (MDRD) 63 L Glucose 104 H Calcium 10.1 Total Bilirubin 2.1 H AST 37 ALT 32 Alkaline Phosphatase 99 Total Protein 7.0 Albumin 4.3 Globulin 2.7 Albumin/Globulin Ratio 1.6 Lipase 27 - Rads (name of study) CT head Radiology: Final report received (No interval change or progression of the previously noted subarachnoid hemorrhage.) PD MEDICAL DECISION MAKING - ED course Complexity details: reviewed results, re-evaluated patient, d/w patient, d/w family ED course: 89-year-old male return to the ER for evaluation of a headache in the setting of a known subarachnoid hemorrhage after a fall on the 12th of this month. Though the patient has no focal neuro deficits over the last 2 days he has had increased difficulty walking. He also has some neck pain that may be inhibiting his ability to walk though per the daughter the neck pain developed before the fall and the subarachnoid hemorrhage. This gentleman is demented and unable to participate in the history but he is otherwise well-appearing. Previously noted scalp laceration is intact without secondary findings to suggest infection. A repeat CT completed today shows no interval change in the size of the subarachnoid hemorrhage. I did repeat screening labs for this gentleman and though he is likely mildly dehydrated there are no other worrisome findings. I discussed with the daughter that it is common to have a headache after subarachnoid hemorrhage and treatment with Tylenol is likely to be sufficient at this time. I advised her against the use of NSAID medication such as ibuprofen or naproxen as it does increase the breathing risk in cerebral hemorrhage. Patient was also dispensed a front wheel walker which daughter feels makes him more stable with gait. I did advise that he should always be monitored when walking. Continue follow-up with primary care provider. Return to the ER for any further falls, worsening headache, fevers or focal neuro deficits. Departure - Departure Disposition: 01 Home, Self Care Clinical Impression: Subarachnoid hemorrhage, Difficulty walking Subarachnoid hem w/o coma Qualifiers: Encounter type: subsequent encounter Qualified Code(s): S06.6X0D - Traumatic subarachnoid hemorrhage without loss of consciousness, subsequent encounter Condition: Stable Record reviewed to determine appropriate education?: Yes Prescriptions: Acetaminophen [Tylenol] 650 mg PO Q6H PRN #30 tab PRN Reason: Pain Comments: Apolinar was seen today in the ER for follow-up of his subarachnoid hemorrhage. The repeat CT scan shows no change in the size of the hemorrhage. This will likely take a few weeks to resolve. It is common for people that have subarachnoid hemorrhages to have headaches. It is okay to give him Tylenol as prescribed 4-5 times a day. He has been prescribed a front wheel walker to help him with ambulation. He should always be supervised when walking and use the walker at all times. If he has any further falls he should return immediately to the ER for a repeat evaluation.
[2021-02-05 16:39] LABS: ALBUMIN 4.3 g/dL (3.2-5.5); ALBUMIN/GLOBULIN RATIO 1.6 (1.0-2.2); BILIRUBIN,TOTAL 2.1 mg/dL (0.2-1.0); CALCIUM 10.1 mg/dL (8.5-10.3); CREATININE 1.1 mg/dL (0.6-1.2); POTASSIUM 3.8 mmol/L (3.5-5.0)
--- NOTE | 2021-02-05 16:49 | CT Report ---
PROCEDURE: HEAD WO INDICATIONS: worsening headache; ? change in SAH TECHNIQUE: Noncontrast 4.5 mm thick angled axial sections acquired from the foramen magnum to the vertex. For r adiation dose reduction, the following was used: automated exposure control, adjustment of mA and/or kV according to patient size. COMPARISON: 02/03/2021, 02/04/2021 FINDINGS: Image quality: Excellent. CSF spaces: Basal cisterns are patent. No extra-axial fluid collections. Ventricles are normal in size and shape. Brain: There is again seen a small amount of subarachnoid hemorrhage along the medial aspect of the left parietal lobe. Compared to the prior CT examination, the volume and configuration of the hemorrh age has not changed. No midline shift. No intracranial masses. Nova-white matter interface is normal. Age-appropriate br ain parenchymal volume loss and chronic small vessel ischemic change can be seen. Skull and face: Calvarium and visualized facial bones are intact, without suspicious lesions. Sinuses: Visualized sinuses and mastoids are clear. IMPRESSION: Stable subarachnoid hemorrhage (without interval progression) seen along the medial aspe ct of the left parietal lobe. Reviewed by: Jason Green MD on 02/05/2021 3:48 PM WICHO Approved by: Jason Green MD on 02/05/2021 3:48 PM [id number] Station ID: [id number]
== END 2021-02-05 17:32 | disposition home or self-care (01) ==
LOC: ED 16:06
DX: S06.6X0A Traumatic subarachnoid hemorrhage without loss of consciousness, initial encounter (principal); R41.82 Altered mental status, unspecified; M54.2 Cervicalgia; R26.2 Difficulty in walking, not elsewhere classified; R53.1 Weakness; S01.01XA Laceration without foreign body of scalp, initial encounter; W18.30XA Fall on same level, unspecified, initial encounter; Y92.099 Unspecified place in other non-institutional residence as the place of occurrence of the external cause; F03.90 Unspecified dementia, unspecified severity, without behavioral disturbance, psychotic disturbance, mood disturbance, and anxiety; I11.0 Hypertensive heart disease with heart failure; I50.9 Heart failure, unspecified; Z66 Do not resuscitate
CPT/HCPCS: 36415; 80053; 83690; 85025; 99281; 99284

== ENCOUNTER 2021-02-07 20:53 | Outpatient (CLI) | payer MEDICARE | END 2021-02-07 20:54 | disposition EMS.NT | LOC: EMS 20:53 | DX: Z03.89 Encounter for observation for other suspected diseases and conditions ruled out (principal) ==

== ENCOUNTER 2021-02-09 19:05 | Outpatient (CLI) | payer MEDICARE | END 2021-02-09 19:06 | disposition critical access hospital (66) | LOC: EMS 19:05 | DX: R41.0 Disorientation, unspecified (principal) | CPT/HCPCS: A0425; A0429 ==

== ENCOUNTER 2021-02-11 14:13 | Outpatient (CLI) | payer MEDICARE | END 2021-02-11 14:14 | disposition home or self-care (01) | LOC: EMS 14:13 | PROVIDERS: ATTEND Nurse Practitioner Gerontology | DX: Z51.5 Encounter for palliative care (principal); I62.9 Nontraumatic intracranial hemorrhage, unspecified; S01.01XA Laceration without foreign body of scalp, initial encounter; F03.90 Unspecified dementia, unspecified severity, without behavioral disturbance, psychotic disturbance, mood disturbance, and anxiety; Z74.01 Bed confinement status | CPT/HCPCS: A0425; A0428 ==